=== PATIENT | female | born 1985 | race Two or more races ===

== ENCOUNTER 2018-01-31 00:13 | Inpatient (IN) | payer SELFPAY ==
[2018-01-31] VITALS (18 sets, daily range): BP systolic 87–110; BP diastolic 53–87
[~2018-01-31] VITALS: Ht 162.6 cm; Wt 53.3 kg
--- NOTE | 2018-01-31 01:01 | Emergency Room Report ---
History of Present Illness General Chief Complaint: Overdose Source: Patient Present Illness HPI Patient presents with reports of attempted overdose Patient was reported to take a handful of Motrin pills She reports that there [id number]-[id number] Patient also reportedly detected her friend regarding thoughts of killing herself Currently patient complains of mild epigastric discomfort Denies any chest pain or shortness of breath denies any back or flank pain Patient is tearful And with further questioning essentially closes her eyes and turns her head Not answering all questions Allergies: Coded Allergies: No Known Allergies (Unverified , 01/31/18) Patient History Limited by: medical condition Past Medical History: see triage record Pertinent Family History: none Last Menstrual Period: 3 weeks ago Now: No Reviewed Nursing Documentation: PMH: Agreed; PSxH: Agreed Nursing Documentation-PMH Past Medical History: No Stated History Review of Systems All Other Systems: negative except mentioned in HPI Physical Exam Vital Signs Date Time Temp Pulse Resp B/P (MAP) Pulse Ox O2 Delivery O2 Flow Rate FiO2 01/31/18 00:13 97.5 106 14 114/60 100 Room Air Sp02 EP Interpretation: reviewed, normal General Appearance: no apparent distress Head: normocephalic, atraumatic Eyes: bilateral eye PERRL, bilateral eye EOMI ENT: normal pharynx, no angioedema Neck: supple Respiratory: lungs clear, normal breath sounds Cardiovascular #1: normal peripheral pulses, regular rate, rhythm Gastrointestinal: non tender, soft Musculoskeletal: normal inspection Neurologic: alert, oriented x3, responsive, real estate office supervisor III-XII nml as tested Psychiatric: other - Tearful, reported suicidal intention Skin: normal color, no rash Lymphatic: no adenopathy Procedures Critical Care Time Critical Care Time 50 minutes for multiple re-evaluations, findings concerning for end organ injury and possible life-threatening pathology, not including any procedural time Medical Decision Making Diagnostic Impression: Primary Impression: Drug overdose Additional Impression: Tylenol poisoning ER Course Upon initial arrival patient is placed on cardiac monitoring and extensive blood work is initiated Initially the patient reported ingestion of ibuprofen However given overdose ingestion protocol all levels were checked and the patient's Tylenol level does return significantly elevated Poison control was contacted acetadote for Tylenol toxicity is recommended and initiated Patient's repeat Tylenol level is minimally lower Case was discussed with the patient's friends/family that are at bedside Given the patient's unknown number congestion, given the significantly elevated initial levels there is significant concern for liver injury and necrosis Patient is considered extremely critical Requiring ICU admission Labs Test 01/31/18 01:03 01/31/18 01:12 01/31/18 02:47 01/31/18 10:20 White Blood Count 8.7 K/UL (4.8-10.8) Red Blood Count 4.52 M/UL (4.20-5.40) Hemoglobin 11.8 G/DL (12.0-16.0) Hematocrit 35.2 % (37.0-47.0) Mean Corpuscular Volume 78 FL (80-99) Mean Corpuscular Hemoglobin 26.0 PG (27.0-31.0) Mean Corpuscular Hemoglobin Concent 33.4 G/DL (32.0-36.0) Red Cell Distribution Width 10.9 % (11.6-14.8) Platelet Count 171 K/UL (150-450) Mean Platelet Volume 8.7 FL (6.5-10.1) Neutrophils (%) (Auto) 69.8 % (45.0-75.0) Lymphocytes (%) (Auto) 23.6 % (20.0-45.0) Monocytes (%) (Auto) 5.7 % (1.0-10.0) Eosinophils (%) (Auto) 0.3 % (0.0-3.0) Basophils (%) (Auto) 0.7 % (0.0-2.0) Sodium Level 138 MMOL/L (136-145) 137 MMOL/L (136-145) Potassium Level 2.8 MMOL/L (3.5-5.1) 2.8 MMOL/L (3.5-5.1) Chloride Level 103 MMOL/L (98-107) 104 MMOL/L (98-107) Carbon Dioxide Level 17 MMOL/L (21-32) 19 MMOL/L (21-32) Anion Gap 16 mmol/L (5-15) 14 mmol/L (5-15) Blood Urea Nitrogen 12 mg/dL (7-18) 8 mg/dL (7-18) Creatinine 0.9 MG/DL (0.55-1.30) 0.6 MG/DL (0.55-1.30) Estimat Glomerular Filtration Rate > 60 mL/min (>60) > 60 mL/min (>60) Glucose Level 175 MG/DL (74-106) 145 MG/DL (74-106) Calcium Level 9.2 MG/DL (8.5-10.1) 8.7 MG/DL (8.5-10.1) Total Bilirubin 0.9 MG/DL (0.2-1.0) 0.7 MG/DL (0.2-1.0) Aspartate Amino Transf (AST/SGOT) 16 U/L (15-37) 32 U/L (15-37) Alanine Aminotransferase (ALT/SGPT) 13 U/L (12-78) 31 U/L (12-78) Alkaline Phosphatase 48 U/L (46-116) 47 U/L (46-116) Total Protein 7.8 G/DL (6.4-8.2) 7.5 G/DL (6.4-8.2) Albumin 4.0 G/DL (3.4-5.0) 4.0 G/DL (3.4-5.0) Globulin 3.8 g/dL 3.5 g/dL Albumin/Globulin Ratio 1.1 (1.0-2.7) 1.1 (1.0-2.7) Salicylates Level 2.0 ug/mL (2.8-20) Acetaminophen Level 258 MCG/ML (10-30) 235 MCG/ML (10-30) 39 MCG/ML (10-30) Serum Alcohol < 3 mg/dL Urine HCG, Qualitative Negative (NEGATIVE) Urine Opiates Screen Negative (NEGATIVE) Urine Barbiturates Screen Negative (NEGATIVE) Phencyclidine (PCP) Screen Negative (NEGATIVE) Urine Amphetamines Screen Negative (NEGATIVE) Urine Benzodiazepines Screen Negative (NEGATIVE) Urine Cocaine Screen Negative (NEGATIVE) Urine Marijuana (THC) Screen Negative (NEGATIVE) Test 01/31/18 17:00 02/01/18 06:50 Total Bilirubin 0.7 MG/DL (0.2-1.0) Direct Bilirubin 0.1 MG/DL (0.0-0.3) Aspartate Amino Transf (AST/SGOT) 28 U/L (15-37) Alanine Aminotransferase (ALT/SGPT) 29 U/L (12-78) Alkaline Phosphatase 44 U/L (46-116) Total Protein 7.1 G/DL (6.4-8.2) Albumin 3.7 G/DL (3.4-5.0) Acetaminophen Level < 2 MCG/ML (10-30) EKG Diagnostic Results Rate: normal Rhythm: NSR ST Segments: no acute changes Rhythm Strip Diag. Results EP Interpretation: yes Rate: 77 Rhythm: NSR, no PVC's, no ectopy Last Vital Signs Date Time Temp Pulse Resp B/P (MAP) Pulse Ox O2 Delivery O2 Flow Rate FiO2 01/31/18 00:28 96 19 Room Air 01/31/18 00:13 97.5 114/60 100 Status: improved Disposition: ADMITTED INPATIENT Condition: Critical Aki Ramires DO Jan 31, 2018 01:00
[2018-01-31 01:12] LABS: BASOPHILS % (AUTO) 0.7 % (0.0-2.0); EOSINOPHILS % (AUTO) 0.3 % (0.0-3.0); HEMATOCRIT 35.2 % (37.0-47.0); HEMOGLOBIN 11.8 G/DL (12.0-16.0); LYMPHOCYTES % (AUTO) 23.6 % (20.0-45.0); MEAN CORPUSCULAR VOLUME 78 FL (80-99); MONOCYTES % (AUTO) 5.7 % (1.0-10.0); NEUTROPHILS % (AUTO) 69.8 % (45.0-75.0); PLATELET COUNT 171 K/UL (150-450); RED BLOOD COUNT 4.52 M/UL (4.20-5.40); RED CELL DISTRIBUTION WIDTH 10.9 % (11.6-14.8); WHITE BLOOD COUNT 8.7 K/UL (4.8-10.8)
[2018-01-31 01:29] LABS: ALANINE AMINOTRANSFERASE 13 U/L (12-78); ALBUMIN/GLOBULIN RATIO 1.1 (1.0-2.7); ALKALINE PHOSPHATASE 48 U/L (46-116); ANION GAP 16 mmol/L (5-15); ASPARTATE AMINO TRANSFERASE 16 U/L (15-37); BILIRUBIN,TOTAL 0.9 MG/DL (0.2-1.0); BLOOD UREA NITROGEN 12 mg/dL (7-18); CALCIUM 9.2 MG/DL (8.5-10.1); CARBON DIOXIDE 17 MMOL/L (21-32); CHLORIDE 103 MMOL/L (98-107); CREATININE 0.9 MG/DL (0.55-1.30); POTASSIUM 2.8 MMOL/L (3.5-5.1); SODIUM 138 MMOL/L (136-145)
[2018-01-31] MEDS ORDERED: D5W IV ONE ×2 (01:45→20:00)
[2018-01-31] MEDS ORDERED: ACETADOTE IV ONE ×2 (01:45→20:00)
[2018-01-31] MEDS ORDERED: Miralax 17gm pkt ORAL PRN (03:30)
[2018-01-31] MEDS ORDERED: Promethazine HCl 25 MG in NS 55 ML IV PRN ×6 (03:30→21:30)
[2018-01-31] MEDS ORDERED: Mylanta II UD 30ml ORAL PRN ×2 (03:30→20:30)
[2018-01-31] MEDS ORDERED: Promethazine HCl 12.5 MG in NS 55 ML IV PRN ×2 (03:30→21:30)
[2018-01-31] MEDS ORDERED: Morphine Sulfate 2mg/ml Inj IVP PRN ×2 (03:30→21:00)
[2018-01-31] MEDS ORDERED: Metoclopramide 10mg/2ml Inj IVP PRN (03:30)
[2018-01-31] MEDS ORDERED: LORazepam Inj 2mg/ml 1ml IV PRN ×2 (03:30→21:00)
[2018-01-31] MEDS ORDERED: Nitroglycerin Subl 0.4mg tab SL PRN (03:30)
[2018-01-31] MEDS: D5 1/2NS 1,000 ML IV SCH ×4 (04:00→21:49)
[2018-01-31] MEDS ORDERED: Pantoprazole Inj IV SCH (09:00)
[2018-01-31] MEDS ORDERED: Heparin 5000 units/ml inj SUBQ SCH (09:00)
--- NOTE | 2018-01-31 10:17 | Pulmonolgy Critical Care Note ---
Critical Care - Asmt/Plan Problems: (1) Tylenol poisoning (2) Depression (3) Suicidal intent Respiratory: monitor respiratory rate, adjust FIO2, CXR Cardiac: continue to monitor HR/BP Renal: F/U I&O Infectious Disease: check cultures Gastrointestinal: continue feedings/current rate Endocrine: monitor blood sugar Hematologic: monitor H/H, transfuse if hgb<8.5 Neurologic: PRN Ativan, keep patient comfortable Affect: PRN ativan Disposition: keep in ICU Notes Reviewed: ios programmer, cardio Discussed with: nurses, case mgrhall manager - Objective Last 24 Hour Vital Signs Date Time Temp Pulse Resp B/P (MAP) Pulse Ox O2 Delivery O2 Flow Rate FiO2 01/31/18 07:00 78 22 87/53 (64) 99 01/31/18 06:00 97.8 80 22 95/57 (70) 98 01/31/18 05:00 97.8 86 22 91/68 (76) 99 01/31/18 04:00 80 22 106/87 (93) 99 01/31/18 03:47 76 01/31/18 03:40 Room Air 01/31/18 03:15 98.7 76 28 105/59 (74) 100 01/31/18 03:05 97.5 78 19 102/61 100 Room Air 01/31/18 00:28 96 19 Room Air 01/31/18 00:28 97.5 79 19 110/69 100 Room Air 01/31/18 00:13 97.5 106 14 114/60 100 Room Air Status: awake Condition: critical HEENT: atraumatic Lungs: clear Heart: HR/BP stable Abdomen: soft Extremities: no C/C/E Critical Care - Subjective ROS Limited/Unobtainable: Yes Interval Events: 32 year old female admitted through ER with dx of Tylenol overdose. She received her first dose of IV Mucomyst. Pt's stepfather is her and helping with hx. Her brother was recently diagnosed to have stage 4 lung cancer, which made her sick. Condition: critical EKG Rhythm: Sinus Rhythm I&O: Intake and Output 01/30/18 01/31/18 19:00 07:00 Intake Total 622.625 ml Output Total 620 ml Balance 2.625 ml Intake Oral 100 ml IV Total 522.625 ml Output Urine Total 620 ml # Voids 4 Labs: Laboratory Tests Test 01/31/18 01:03 01/31/18 01:12 01/31/18 02:47 White Blood Count 8.7 K/UL (4.8-10.8) Red Blood Count 4.52 M/UL (4.20-5.40) Hemoglobin 11.8 G/DL (12.0-16.0) L Hematocrit 35.2 % (37.0-47.0) L Mean Corpuscular Volume 78 FL (80-99) L Mean Corpuscular Hemoglobin 26.0 PG (27.0-31.0) L Mean Corpuscular Hemoglobin Concent 33.4 G/DL (32.0-36.0) Red Cell Distribution Width 10.9 % (11.6-14.8) L Platelet Count 171 K/UL (150-450) Mean Platelet Volume 8.7 FL (6.5-10.1) Neutrophils (%) (Auto) 69.8 % (45.0-75.0) Lymphocytes (%) (Auto) 23.6 % (20.0-45.0) Monocytes (%) (Auto) 5.7 % (1.0-10.0) Eosinophils (%) (Auto) 0.3 % (0.0-3.0) Basophils (%) (Auto) 0.7 % (0.0-2.0) Sodium Level 138 MMOL/L (136-145) Potassium Level 2.8 MMOL/L (3.5-5.1) L Chloride Level 103 MMOL/L (98-107) Carbon Dioxide Level 17 MMOL/L (21-32) L Anion Gap 16 mmol/L (5-15) H Blood Urea Nitrogen 12 mg/dL (7-18) Creatinine 0.9 MG/DL (0.55-1.30) Estimat Glomerular Filtration Rate > 60 mL/min (>60) Glucose Level 175 MG/DL (74-106) H Calcium Level 9.2 MG/DL (8.5-10.1) Total Bilirubin 0.9 MG/DL (0.2-1.0) Aspartate Amino Transf (AST/SGOT) 16 U/L (15-37) Alanine Aminotransferase (ALT/SGPT) 13 U/L (12-78) Alkaline Phosphatase 48 U/L (46-116) Total Protein 7.8 G/DL (6.4-8.2) Albumin 4.0 G/DL (3.4-5.0) Globulin 3.8 g/dL Albumin/Globulin Ratio 1.1 (1.0-2.7) Salicylates Level 2.0 ug/mL (2.8-20) L Acetaminophen Level 258 MCG/ML (10-30) *H 235 MCG/ML (10-30) *H Serum Alcohol < 3 mg/dL Urine HCG, Qualitative Negative (NEGATIVE) Urine Opiates Screen Negative (NEGATIVE) Urine Barbiturates Screen Negative (NEGATIVE) Phencyclidine (PCP) Screen Negative (NEGATIVE) Urine Amphetamines Screen Negative (NEGATIVE) Urine Benzodiazepines Screen Negative (NEGATIVE) Urine Cocaine Screen Negative (NEGATIVE) Urine Marijuana (THC) Screen Negative (NEGATIVE) Sabina Armstrong MD Jan 31, 2018 10:16
[2018-01-31 11:13] LABS: ALANINE AMINOTRANSFERASE 31 U/L (12-78); ALBUMIN/GLOBULIN RATIO 1.1 (1.0-2.7); ALKALINE PHOSPHATASE 47 U/L (46-116); ANION GAP 14 mmol/L (5-15); ASPARTATE AMINO TRANSFERASE 32 U/L (15-37); BILIRUBIN,TOTAL 0.7 MG/DL (0.2-1.0); BLOOD UREA NITROGEN 8 mg/dL (7-18); CALCIUM 8.7 MG/DL (8.5-10.1); CARBON DIOXIDE 19 MMOL/L (21-32); CHLORIDE 104 MMOL/L (98-107); CREATININE 0.6 MG/DL (0.55-1.30); POTASSIUM 2.8 MMOL/L (3.5-5.1); SODIUM 137 MMOL/L (136-145)
--- NOTE | 2018-01-31 12:35 | GI Initial Consult Note ---
History of Present Illness General Date patient seen: Jan 31, 2018 Time patient seen: 12:36 Reason for Hospitalization: Overdose Referring physician: TOR ZAFAR Reason for Consultation: TYLENOL OVERDOSE Present Illness HPI Patient presents with reports of attempted overdose Patient was reported to take a handful of Motrin pills She reports that there [id number]-mdnukxb Patient also reportedly detected her friend regarding thoughts of killing herself Currently patient complains of mild epigastric discomfort Denies any chest pain or shortness of breath denies any back or flank pain Patient is tearful And with further questioning essentially closes her eyes and turns her head Not answering all questions GI consulted for tylenol overdose. Pt seen in ICU, awake A&Ox4 NAD with no active s/sx of N/V/D. Denies any abdominal pain, states she feels better. Mother at bedside. The patient received tylenol antidote in ED, currently has 2nd bag of mucomyst running. Per RN report, patient may have history of repeated incidents of tylenol overdose. Unknown history of endoscopy / colonoscopy. Med list reviewed/reconciled: Yes Allergies: Coded Allergies: No Known Allergies (Unverified , 01/31/18) Patient History History Provided By: Patient, Medical Record PMH Narrative Limited by: medical condition Past Medical History: see triage record Pertinent Family History: none Last Menstrual Period: 3 weeks ago Now: No Reviewed Nursing Documentation: PMH: Agreed; PSxH: Agreed Nursing Documentation-PMH Past Medical History: No Stated History Review of Systems All Other Systems: negative except mentioned in HPI Physical Exam Vital Signs Date Time Temp Pulse Resp B/P (MAP) Pulse Ox O2 Delivery O2 Flow Rate FiO2 01/31/18 00:13 97.5 106 14 114/60 100 Room Air Sp02 EP Interpretation: reviewed, normal Labs Laboratory Tests Test 01/31/18 01:03 01/31/18 01:12 01/31/18 02:47 01/31/18 10:20 White Blood Count 8.7 K/UL (4.8-10.8) Red Blood Count 4.52 M/UL (4.20-5.40) Hemoglobin 11.8 G/DL (12.0-16.0) L Hematocrit 35.2 % (37.0-47.0) L Mean Corpuscular Volume 78 FL (80-99) L Mean Corpuscular Hemoglobin 26.0 PG (27.0-31.0) L Mean Corpuscular Hemoglobin Concent 33.4 G/DL (32.0-36.0) Red Cell Distribution Width 10.9 % (11.6-14.8) L Platelet Count 171 K/UL (150-450) Mean Platelet Volume 8.7 FL (6.5-10.1) Neutrophils (%) (Auto) 69.8 % (45.0-75.0) Lymphocytes (%) (Auto) 23.6 % (20.0-45.0) Monocytes (%) (Auto) 5.7 % (1.0-10.0) Eosinophils (%) (Auto) 0.3 % (0.0-3.0) Basophils (%) (Auto) 0.7 % (0.0-2.0) Sodium Level 138 MMOL/L (136-145) 137 MMOL/L (136-145) Potassium Level 2.8 MMOL/L (3.5-5.1) L 2.8 MMOL/L (3.5-5.1) L Chloride Level 103 MMOL/L (98-107) 104 MMOL/L (98-107) Carbon Dioxide Level 17 MMOL/L (21-32) L 19 MMOL/L (21-32) L Anion Gap 16 mmol/L (5-15) H 14 mmol/L (5-15) Blood Urea Nitrogen 12 mg/dL (7-18) 8 mg/dL (7-18) Creatinine 0.9 MG/DL (0.55-1.30) 0.6 MG/DL (0.55-1.30) Estimat Glomerular Filtration Rate > 60 mL/min (>60) > 60 mL/min (>60) Glucose Level 175 MG/DL (74-106) H 145 MG/DL (74-106) H Calcium Level 9.2 MG/DL (8.5-10.1) 8.7 MG/DL (8.5-10.1) Total Bilirubin 0.9 MG/DL (0.2-1.0) 0.7 MG/DL (0.2-1.0) Aspartate Amino Transf (AST/SGOT) 16 U/L (15-37) 32 U/L (15-37) Alanine Aminotransferase (ALT/SGPT) 13 U/L (12-78) 31 U/L (12-78) Alkaline Phosphatase 48 U/L (46-116) 47 U/L (46-116) Total Protein 7.8 G/DL (6.4-8.2) 7.5 G/DL (6.4-8.2) Albumin 4.0 G/DL (3.4-5.0) 4.0 G/DL (3.4-5.0) Globulin 3.8 g/dL 3.5 g/dL Albumin/Globulin Ratio 1.1 (1.0-2.7) 1.1 (1.0-2.7) Salicylates Level 2.0 ug/mL (2.8-20) L Acetaminophen Level 258 MCG/ML (10-30) *H 235 MCG/ML (10-30) *H 39 MCG/ML (10-30) H Serum Alcohol < 3 mg/dL Urine HCG, Qualitative Negative (NEGATIVE) Urine Opiates Screen Negative (NEGATIVE) Urine Barbiturates Screen Negative (NEGATIVE) Phencyclidine (PCP) Screen Negative (NEGATIVE) Urine Amphetamines Screen Negative (NEGATIVE) Urine Benzodiazepines Screen Negative (NEGATIVE) Urine Cocaine Screen Negative (NEGATIVE) Urine Marijuana (THC) Screen Negative (NEGATIVE) General Appearance: well appearing, no apparent distress, alert, thin Head: normocephalic EENT: PERRL/EOMI, normal ENT inspection Neck: supple Respiratory: normal breath sounds, no respiratory distress Cardiovascular: normal rate Gastrointestinal: normal inspection, non tender, soft, normal bowel sounds, non -distended Rectal: deferred Genitourinary: no CVA tenderness Musculoskeletal: normal inspection, back normal Neurologic: normal inspection, alert, oriented x3, responsive Psychiatric: normal inspection, judgement/insight normal, memory normal Skin: normal inspection, normal color, no rash, warm/dry, palpation normal, well hydrated Lymphatic: normal inspection, no adenopathy Current Medications Current Medications Medications (Trade) Dose Ordered Sig/Chirag Route PRN Reason Start Time Stop Time Status Last Admin Dose Admin Acetylcysteine 2600 mg/Dextrose 513 ml @ 128.25 mls/ hr ONCE IV 01/31/18 11:00 01/31/18 15:00 01/31/18 11:19 Acetylcysteine 5400 mg/Dextrose 1,027 ml @ 64.188 mls/ hr ONCE IV 01/31/18 15:00 02/01/18 14:59 Al Hydroxide/Mg Hydroxide (Mylanta II) 30 ml Q6H PRN ORAL dyspepsia 01/31/18 03:30 03/02/18 03:29 Dextrose (Dextrose 50%) 25 ml Q30M PRN IV Hypoglycemia 01/31/18 03:30 03/02/18 03:29 Dextrose (Dextrose 50%) 50 ml Q30M PRN IV Hypoglycemia 01/31/18 03:30 03/02/18 03:29 Dextrose/Sodium Chloride 1,000 ml @ 75 mls/hr [id number] IV 01/31/18 03:30 03/02/18 03:29 01/31/18 04:00 Diphenhydramine HCl (Benadryl) 25 mg Q6H PRN ORAL Itching/Pruritis 01/31/18 03:30 03/02/18 03:29 Heparin Sodium (Porcine) (Heparin 5000 units/ml) 5,000 units EVERY 12 HOURS SUBQ 01/31/18 09:00 03/02/18 08:59 01/31/18 09:11 Lorazepam (Ativan 2mg/ml 1ml) 1 mg Q4H PRN IV agitation 01/31/18 03:30 02/07/18 03:29 01/31/18 04:28 Metoclopramide HCl (Reglan) 10 mg Q6H PRN IVP servere nausea 01/31/18 03:30 03/02/18 03:29 01/31/18 03:59 Mirtazapine (Remeron) 7.5 mg BEDTIME ORAL 01/31/18 21:00 03/02/18 20:59 Morphine Sulfate (Morphine Sulfate) 2 mg Q4H PRN IVP severe Pain (Pain Scale 7-10) 01/31/18 03:30 02/07/18 03:29 Ondansetron HCl (Zofran) 4 mg Q6H PRN IVP Nausea & Vomiting 01/31/18 03:30 03/02/18 03:29 01/31/18 09:04 Pantoprazole (Protonix) 40 mg DAILY IV 01/31/18 09:00 03/02/18 08:59 01/31/18 09:10 Promethazine HCl 12.5 mg/Sodium Chloride 55.5 ml @ 110 mls/hr Q6H PRN IV Refractory N/V 01/31/18 03:30 03/02/18 03:29 Promethazine HCl 25 mg/Sodium Chloride 56 ml @ 110 mls/hr Q6H PRN IV Refractory N/V 01/31/18 03:30 03/02/18 03:29 Temazepam (Restoril) 15 mg HSPRN PRN ORAL Insomnia 01/31/18 03:30 02/07/18 03:29 GI: Plan Problems: (1) Tylenol poisoning (2) Suicidal intent (3) Depression (4) Abdominal pain (5) Drug overdose Plan acetylcysteine given in ED, patient currently on 2nd dose repeat Tylenol levels pending US, okay to advance diet after imaging study IVFs + electrolyte correction ppi zofran prn fu labs Discussed with Dr. Buck. Thank you for this patient referral, we will follow. The patient was seen and examined at bedside and all new and available data was reviewed in the patients chart. I agree with the above findings, impression and plan. (Patient seen earlier today. Signature stamp does not reflect patient encounter time.). - MD Chana Joy,[facility] [employer] SUPERVISOR Jan 31, 2018 12:35
--- NOTE | 2018-01-31 13:59 | Diagnostic Imaging Report ---
Indication:Abdominal pain Technique: Grayscale and duplex Doppler imaging of the abdomen performed. Comparison: None Findings: The liver is unremarkable. The gallbladder is noted. The demonstrated part of the pancreas, aorta and IVC show no abnormalities. Both kidneys appear unremarkable. The spleen is normal in size. Accessory spleen noted. CBD is 3.3 mm. There is no biliary ductal dilatation identified. Doppler evaluation of the main portal vein shows patency. There is no ascites. No hydronephrosis seen. Impression: No acute findings.
[2018-01-31] MEDS ORDERED: D5W IV SCH (15:00)
[2018-01-31] MEDS ORDERED: ACETADOTE IV SCH (15:00)
--- NOTE | 2018-01-31 16:00 | History & Physical ---
History and Physical History & Physicial Eyad Carmona MD Jan 31, 2018 16:00
[2018-01-31 17:44] LABS: ALANINE AMINOTRANSFERASE 29 U/L (12-78); ALBUMIN 3.7 G/DL (3.4-5.0); ALKALINE PHOSPHATASE 44 U/L (46-116); ASPARTATE AMINO TRANSFERASE 28 U/L (15-37); BILIRUBIN,DIRECT 0.1 MG/DL (0.0-0.3); BILIRUBIN,TOTAL 0.7 MG/DL (0.2-1.0)
--- NOTE | 2018-01-31 19:02 | Consultation ---
DATE OF CONSULTATION: 01/31/2018 HISTORY OF PRESENT ILLNESS: This is a 32-year-old female with no known past psychiatric history, who has been admitted to the hospital status post suicide attempt on Tylenol. The patient has multiple psychosocial stressors including her brother dying from stage IV cancer as well as boyfriend and the patient relationship issues. The patient's family is out of state, however, she has relationship issues with her boyfriend and boyfriend's family. The patient stated "there is so much going on, that is why, I decided to end my life." The patient denies any current suicidal ideation. The patient stated that she has been dealing with anxiety for the past several months. She is reluctant to get any psychiatric help. The patient stated that she is going to be "fine." The patient stated last night around 10:30, she decided to end her life. She took about a quarter of a bottle of Tylenol and thereafter, she called her brother and reported that she is ending her life and wants the brother to take care of her dog and he could have all her belongings. PAST PSYCHIATRIC HISTORY: She denies any suicide attempt in the past. She denies any psychiatric hospitalization in the past. PAST MEDICAL HISTORY: None significant. ALLERGIES: No known drug allergies. SUBSTANCE ABUSE HISTORY: She denies any illicit drug use or alcohol. System is negative for any drugs. The acetaminophen is significantly elevated. MENTAL STATUS EXAMINATION: The patient is alert and oriented times self, place, and situation. Mood is depressed. Affect is constricted. Congruent with mood. Thought process is concrete. Thought content, no suicidal or homicidal ideations. ASSESSMENT: [place] I Major depressive disorder, recurrent versus adjustment disorder. [place] II Deferred. [place] III As above. [place] IV Low. [place] V Global assessment of functioning is 20. PLAN: 1. The patient will be started on Remeron 7.5 mg at bedtime. 2. She is on Ativan p.r.n. 3. She does not meet the criteria for hold nor inpatient level of care. The patient may be discharged after medical stabilization. Radha Willett M.D. DR: GLEN JOB#: [id number] CC:
[2018-01-31] MEDS: Heparin 5000 units/ml inj SUBQ SCH (21:00)
--- NOTE | 2018-01-31 22:17 | History and Physical Report ---
DATE OF ADMISSION: 01/31/2018 CHIEF COMPLAINT: Overdose on Tylenol and ibuprofen. HISTORY OF PRESENT ILLNESS: This is a 32 years old female with a past medical history significant for asthma, who presented to the hospital complaining about attempt to have overdose on medication. She took handful of Motrin as well as Tylenol, reported that over the counter. The patient detected by her friend regarding thoughts of killing herself, and she denies any chest pain or shortness of breath. Complains about gastric pain. The patient subsequently was transferred to the hospital. Shortly after initial evaluation in the emergency department, the patient was admitted to the hospital with Tylenol overdose and suicide attempt and depression. PAST MEDICAL HISTORY AND PAST SURGICAL HISTORY: As above. History of asthma. MEDICATIONS: At home, none. She used to take inhaler. FAMILY HISTORY: Noncontributory. ALLERGIES: No known drug allergies. REVIEW OF SYSTEMS: Mostly as above. Denies any dysuria, frequency, or hematuria. She has complained about depression. Denies any hemoptysis or hematochezia. Denies any bright red blood per rectum. PHYSICAL EXAMINATION: VITAL SIGNS: On admission, temperature 97.5, pulse of 106, respirations 14, and blood pressure 114/60. GENERAL: The patient is awake, responsive, very blunt appearance and poor eye contact. HEAD AND NECK: Pupils are reactive to light. Extraocular movements are intact. Neck was supple. No JVD. LUNGS: Good air entry. No wheezing or rales. HEART: S1 and S2. Regular rhythm. No murmur or gallop. ABDOMEN: Soft, nondistended, and nontender. Positive bowel sounds. EXTREMITIES: No cyanosis, clubbing, or edema. NEUROLOGIC: Cranial nerves II through XII are grossly intact. Motor is 5/5 in all extremities. Gait is not assessed due to the patient's status. RECTAL: Refused and deferred. GENITOURINARY: Refused and deferred. LABORATORY AND DIAGNOSTIC DATA: Laboratory on admission, sodium 138, potassium 2.8, chloride 103, bicarbonate 17, BUN 12, creatinine 0.9, and glucose is 175. AST of 16, ALT of 13, total bilirubin of 0.9, and alkaline phosphatase was 48. Tylenol level is 258, salicylate level is 2.0, and alcohol level is less than 3. Urine drug screen is negative. Abdominal ultrasound unremarkable. ASSESSMENT: 1. Severe depression, status post overdose on Tylenol . 2. Tylenol overdose. 3. History of asthma. 4. Hypokalemia. PLAN: Admit the patient to intensive care unit. We will follow up with the , follow up with the Mucomyst dosage. Follow up with Dr. Armstrong, Pulmonary, Critical Care and Psychiatry, Dr. Willett. Code status, Full Code. DVT prophylaxis. Heparin subcutaneously. IV hydration. Code status, Full Code at this time. Eyad Carmona M.D. DR: ROSSI JOB#: [id number] CC:
[2018-02-01] VITALS: BP 104/75
[2018-02-01 04:00] VITALS: BP 99/60
[2018-02-01] MEDS: D5 1/2NS 1,000 ML IV SCH ×2 (06:00→21:51)
[2018-02-01 07:25] LABS: BASOPHILS % (AUTO) 1.6 % (0.0-2.0); EOSINOPHILS % (AUTO) 1.4 % (0.0-3.0); HEMOGLOBIN 11.3 G/DL (12.0-16.0); LYMPHOCYTES % (AUTO) 41.8 % (20.0-45.0); MEAN CORPUSCULAR VOLUME 79 FL (80-99); MONOCYTES % (AUTO) 6.2 % (1.0-10.0); PLATELET COUNT 139 K/UL (150-450); RED BLOOD COUNT 4.16 M/UL (4.20-5.40); RED CELL DISTRIBUTION WIDTH 11.6 % (11.6-14.8); WHITE BLOOD COUNT 4.2 K/UL (4.8-10.8)
[2018-02-01 07:37] LABS: ALANINE AMINOTRANSFERASE 28 U/L (12-78); ALBUMIN 3.1 G/DL (3.4-5.0); ALBUMIN/GLOBULIN RATIO 0.9 (1.0-2.7); ALKALINE PHOSPHATASE 36 U/L (46-116); AMYLASE 48 U/L (25-115); ANION GAP 9 mmol/L (5-15); ASPARTATE AMINO TRANSFERASE 19 U/L (15-37); BILIRUBIN,TOTAL 0.4 MG/DL (0.2-1.0); BLOOD UREA NITROGEN 2 mg/dL (7-18); CALCIUM 8.6 MG/DL (8.5-10.1); CARBON DIOXIDE 24 MMOL/L (21-32); CHLORIDE 109 MMOL/L (98-107); CREATININE 0.7 MG/DL (0.55-1.30); POTASSIUM 3.3 MMOL/L (3.5-5.1); SODIUM 142 MMOL/L (136-145)
[2018-02-01 08:12] VITALS: BP 100/60
[2018-02-01 08:14] LABS: PHOSPHORUS 3.6 MG/DL (2.5-4.9)
[2018-02-01] MEDS: Pantoprazole Inj IV SCH (08:37)
[2018-02-01] MEDS: Heparin 5000 units/ml inj SUBQ SCH ×2 (09:00→20:53)
[2018-02-01 12:00] VITALS: BP 134/62
[2018-02-01] MEDS ORDERED: Tubing IV Secondary IV ONE ×2 (13:30→17:37)
[2018-02-01] MEDS ORDERED: D5 1/2NS 1000ml IV ONE (13:30)
[2018-02-01] MEDS ORDERED: NS 275ml ONE (13:30)
[2018-02-01 16:12] VITALS: BP 105/64
--- NOTE | 2018-02-01 18:57 | Internal Med Progress Note ---
Subjective Date of Service: Feb 01, 2018 Physician Name Mekhi Magaña Attending Physician Eyad Carmona MD Current Medications Medications (Trade) Dose Ordered Sig/Chirag Route PRN Reason Start Time Stop Time Status Last Admin Dose Admin Al Hydroxide/Mg Hydroxide (Mylanta II) 30 ml Q6H PRN ORAL dyspepsia 01/31/18 20:30 03/02/18 20:29 Dextrose (Dextrose 50%) 25 ml Q30M PRN IV Hypoglycemia 01/31/18 20:30 03/02/18 03:29 Dextrose (Dextrose 50%) 50 ml Q30M PRN IV Hypoglycemia 01/31/18 20:30 03/02/18 03:29 Dextrose/Sodium Chloride 1,000 ml @ 75 mls/hr [id number] IV 01/31/18 20:00 03/02/18 03:29 02/01/18 06:00 Diphenhydramine HCl (Benadryl) 25 mg Q6H PRN ORAL Itching/Pruritis 01/31/18 21:00 03/02/18 20:59 Heparin Sodium (Porcine) (Heparin 5000 units/ml) 5,000 units EVERY 12 HOURS SUBQ 01/31/18 21:00 03/02/18 08:59 Lorazepam (Ativan 2mg/ml 1ml) 1 mg Q4H PRN IV agitation 01/31/18 21:00 02/07/18 20:59 Mirtazapine (Remeron) 7.5 mg BEDTIME ORAL 01/31/18 21:00 03/02/18 20:59 01/31/18 20:57 Morphine Sulfate (Morphine Sulfate) 2 mg Q4H PRN IVP severe Pain (Pain Scale 7-10) 01/31/18 21:00 02/07/18 20:59 Ondansetron HCl (Zofran) 4 mg Q6H PRN IVP Nausea & Vomiting 01/31/18 21:00 03/02/18 20:59 Pantoprazole (Protonix) 40 mg DAILY IV 02/01/18 09:00 03/02/18 08:59 02/01/18 08:37 Promethazine HCl 25 mg/Sodium Chloride 56 ml @ 110 mls/hr Q6H PRN IV Refractory N/V 01/31/18 20:15 03/02/18 20:14 Temazepam (Restoril) 15 mg HSPRN PRN ORAL Insomnia 01/31/18 21:00 02/07/18 20:59 Allergies: Coded Allergies: No Known Allergies (Unverified , 01/31/18) ROS Limited/Unobtainable: No Constitutional: Reports: no symptoms HEENT: Reports: no symptoms Cardiovascular: Reports: no symptoms Respiratory: Reports: no symptoms Gastrointestinal/Abdominal: Reports: no symptoms Genitourinary: Reports: no symptoms Neurologic/Psychiatric: Reports: no symptoms Subjective 32 YO F admitted with intentional overdose as suicide gesture. Cover for Int Jairon-Dr Carmona Objective Last Vital Signs Date Time Temp Pulse Resp B/P (MAP) Pulse Ox O2 Delivery O2 Flow Rate FiO2 02/01/18 16:12 97.5 74 18 105/64 (78) 98 02/01/18 09:00 Room Air Laboratory Tests Test 02/01/18 06:50 White Blood Count 4.2 K/UL (4.8-10.8) #L Red Blood Count 4.16 M/UL (4.20-5.40) L Hemoglobin 11.3 G/DL (12.0-16.0) L Hematocrit 33.0 % (37.0-47.0) L Mean Corpuscular Volume 79 FL (80-99) L Mean Corpuscular Hemoglobin 27.1 PG (27.0-31.0) Mean Corpuscular Hemoglobin Concent 34.1 G/DL (32.0-36.0) Red Cell Distribution Width 11.6 % (11.6-14.8) Platelet Count 139 K/UL (150-450) L Mean Platelet Volume 8.9 FL (6.5-10.1) Neutrophils (%) (Auto) 49.0 % (45.0-75.0) Lymphocytes (%) (Auto) 41.8 % (20.0-45.0) Monocytes (%) (Auto) 6.2 % (1.0-10.0) Eosinophils (%) (Auto) 1.4 % (0.0-3.0) Basophils (%) (Auto) 1.6 % (0.0-2.0) Erythrocyte Sedimentation Rate 2 MM/HR (0-20) Activated Partial Thromboplast Time 26 SEC (23-33) Sodium Level 142 MMOL/L (136-145) Potassium Level 3.3 MMOL/L (3.5-5.1) L Chloride Level 109 MMOL/L (98-107) H Carbon Dioxide Level 24 MMOL/L (21-32) Anion Gap 9 mmol/L (5-15) Blood Urea Nitrogen 2 mg/dL (7-18) L Creatinine 0.7 MG/DL (0.55-1.30) Estimat Glomerular Filtration Rate > 60 mL/min (>60) Glucose Level 107 MG/DL (74-106) H Calcium Level 8.6 MG/DL (8.5-10.1) Phosphorus Level 3.6 MG/DL (2.5-4.9) Magnesium Level 1.6 MG/DL (1.8-2.4) L Total Bilirubin 0.4 MG/DL (0.2-1.0) Aspartate Amino Transf (AST/SGOT) 19 U/L (15-37) Alanine Aminotransferase (ALT/SGPT) 28 U/L (12-78) Alkaline Phosphatase 36 U/L (46-116) L C-Reactive Protein, Quantitative < 0.4 mg/dL (0.00-0.90) Total Protein 6.5 G/DL (6.4-8.2) Albumin 3.1 G/DL (3.4-5.0) L Globulin 3.4 g/dL Albumin/Globulin Ratio 0.9 (1.0-2.7) L Amylase Level 48 U/L (25-115) Lipase 123 U/L (73-393) Microbiology Date/Time Source Procedure Growth Status 01/31/18 03:32 Nasal Nares MRSA Culture - Final NO METHICILLIN RESISTANT STAPH AUREUS... Complete 01/31/18 03:32 Rectum VRE Culture - Final NO VANCOMYCIN RESISTANT ENTEROCOCCUS ... Complete Intake and Output 01/31/18 02/01/18 19:00 07:00 Intake Total 1278.00 ml 1674.436 ml Balance 1278.00 ml 1674.436 ml Intake Oral 390 ml 240 ml IV Total 888.00 ml 1434.436 ml # Voids 5 1 # Bowel Movements 3 Objective PHYSICAL EXAMINATION: GENERAL: The patient is awake, responsive, very blunt appearance and poor eye contact. HEAD AND NECK: Pupils are reactive to light. Extraocular movements are intact. Neck was supple. No JVD. LUNGS: Good air entry. No wheezing or rales. HEART: S1 and S2. Regular rhythm. No murmur or gallop. ABDOMEN: Soft, nondistended, and nontender. Positive bowel sounds. EXTREMITIES: No cyanosis, clubbing, or edema. NEUROLOGIC: Cranial nerves II through XII are grossly intact. Motor is 5/5 in all extremities. Gait is not assessed due to the patient's status. RECTAL: Refused and deferred. GENITOURINARY: Refused and deferred. Assessment/Plan Problem List: (1) Major depression Assessment & Plan: See psychiatry note-does not meet 5150 criteria. Continue remeron (2) Suicide attempt (3) Drug overdose (4) Tylenol poisoning Assessment & Plan: Continue acetylcysteine per GI (5) Elevated liver enzymes Status: not improved Mekhi Magaña MD Feb 01, 2018 18:57
[2018-02-01 20:00] VITALS: BP 95/60
[2018-02-02] VITALS (7 sets, daily range): BP systolic 98–108; BP diastolic 56–69
[2018-02-02] MEDS: Heparin 5000 units/ml inj SUBQ SCH ×2 (09:00→20:04)
[2018-02-02] MEDS: Pantoprazole Inj IV SCH (09:47)
[2018-02-02] MEDS: D5 1/2NS 1,000 ML IV SCH (12:17)
--- NOTE | 2018-02-02 16:23 | Internal Med Progress Note ---
Subjective Date of Service: Feb 02, 2018 Physician Name Mekhi Magaña Attending Physician Eyad Carmona MD Current Medications Medications (Trade) Dose Ordered Sig/Chirag Route PRN Reason Start Time Stop Time Status Last Admin Dose Admin Al Hydroxide/Mg Hydroxide (Mylanta II) 30 ml Q6H PRN ORAL dyspepsia 01/31/18 20:30 03/02/18 20:29 Dextrose (Dextrose 50%) 25 ml Q30M PRN IV Hypoglycemia 01/31/18 20:30 03/02/18 03:29 Dextrose (Dextrose 50%) 50 ml Q30M PRN IV Hypoglycemia 01/31/18 20:30 03/02/18 03:29 Dextrose/Sodium Chloride 1,000 ml @ 75 mls/hr [id number] IV 01/31/18 20:00 03/02/18 03:29 02/02/18 12:17 Diphenhydramine HCl (Benadryl) 25 mg Q6H PRN ORAL Itching/Pruritis 01/31/18 21:00 03/02/18 20:59 Heparin Sodium (Porcine) (Heparin 5000 units/ml) 5,000 units EVERY 12 HOURS SUBQ 01/31/18 21:00 03/02/18 08:59 Lorazepam (Ativan 2mg/ml 1ml) 1 mg Q4H PRN IV agitation 01/31/18 21:00 02/07/18 20:59 Mirtazapine (Remeron) 7.5 mg BEDTIME ORAL 01/31/18 21:00 03/02/18 20:59 02/01/18 20:53 Morphine Sulfate (Morphine Sulfate) 2 mg Q4H PRN IVP severe Pain (Pain Scale 7-10) 01/31/18 21:00 02/07/18 20:59 Ondansetron HCl (Zofran) 4 mg Q6H PRN IVP Nausea & Vomiting 01/31/18 21:00 03/02/18 20:59 Pantoprazole (Protonix) 40 mg DAILY IV 02/01/18 09:00 03/02/18 08:59 02/02/18 09:47 Promethazine HCl 25 mg/Sodium Chloride 56 ml @ 110 mls/hr Q6H PRN IV Refractory N/V 01/31/18 20:15 03/02/18 20:14 Temazepam (Restoril) 15 mg HSPRN PRN ORAL Insomnia 01/31/18 21:00 02/07/18 20:59 Allergies: Coded Allergies: No Known Allergies (Unverified , 01/31/18) ROS Limited/Unobtainable: No Constitutional: Reports: no symptoms HEENT: Reports: no symptoms Cardiovascular: Reports: no symptoms Respiratory: Reports: no symptoms Gastrointestinal/Abdominal: Reports: no symptoms Genitourinary: Reports: no symptoms Neurologic/Psychiatric: Reports: no symptoms Subjective 32 YO F admitted with intentional overdose as suicide gesture. Cover for Int Med-Dr Carmona Objective Last Vital Signs Date Time Temp Pulse Resp B/P (MAP) Pulse Ox O2 Delivery O2 Flow Rate FiO2 02/02/18 15:52 98.8 69 18 100/56 (71) 98 02/02/18 09:00 Room Air Microbiology Date/Time Source Procedure Growth Status 01/31/18 03:32 Nasal Nares MRSA Culture - Final NO METHICILLIN RESISTANT STAPH AUREUS... Complete 01/31/18 03:32 Rectum - Final NO CARBAPENEM-RESISTANT ENTEROBACTERI... Complete 01/31/18 03:32 Rectum VRE Culture - Final NO VANCOMYCIN RESISTANT ENTEROCOCCUS ... Complete Intake and Output 02/01/18 02/02/18 19:00 07:00 Intake Total 1308.376 ml 1185 ml Balance 1308.376 ml 1185 ml Intake Oral 480 ml 360 ml IV Total 828.376 ml 825 ml # Voids 8 3 Objective PHYSICAL EXAMINATION: GENERAL: The patient is awake, responsive, very blunt appearance and poor eye contact. HEAD AND NECK: Pupils are reactive to light. Extraocular movements are intact. Neck was supple. No JVD. LUNGS: Good air entry. No wheezing or rales. HEART: S1 and S2. Regular rhythm. No murmur or gallop. ABDOMEN: Soft, nondistended, and nontender. Positive bowel sounds. EXTREMITIES: No cyanosis, clubbing, or edema. NEUROLOGIC: Cranial nerves II through XII are grossly intact. Motor is 5/5 in all extremities. Gait is not assessed due to the patient's status. RECTAL: Refused and deferred. GENITOURINARY: Refused and deferred. Assessment/Plan Problem List: (1) Major depression Assessment & Plan: See psychiatry note-does not meet 5150 criteria. Continue remeron (2) Suicide attempt (3) Drug overdose (4) Tylenol poisoning Assessment & Plan: Continue acetylcysteine per GI (5) Elevated liver enzymes Mekhi Magaña MD Feb 02, 2018 16:23
[2018-02-03 04:00] VITALS: BP 100/59
[2018-02-03 07:59] LABS: BASOPHILS % (AUTO) 0.8 % (0.0-2.0); HEMATOCRIT 36.3 % (37.0-47.0); LYMPHOCYTES % (AUTO) 40.3 % (20.0-45.0); MEAN CORPUSCULAR VOLUME 80 FL (80-99); MONOCYTES % (AUTO) 6.3 % (1.0-10.0); NEUTROPHILS % (AUTO) 49.6 % (45.0-75.0); PLATELET COUNT 167 K/UL (150-450); RED BLOOD COUNT 4.51 M/UL (4.20-5.40); RED CELL DISTRIBUTION WIDTH 11.2 % (11.6-14.8); WHITE BLOOD COUNT 4.7 K/UL (4.8-10.8)
[2018-02-03 08:00] VITALS: BP 110/65
[2018-02-03 08:02] LABS: ANION GAP 6 mmol/L (5-15); BLOOD UREA NITROGEN 6 mg/dL (7-18); CALCIUM 9.4 MG/DL (8.5-10.1); CARBON DIOXIDE 29 MMOL/L (21-32); CHLORIDE 107 MMOL/L (98-107); CREATININE 0.7 MG/DL (0.55-1.30); SODIUM 142 MMOL/L (136-145)
[2018-02-03] MEDS: Heparin 5000 units/ml inj SUBQ SCH (08:02)
[2018-02-03] MEDS: Pantoprazole Inj IV SCH (08:16)
[2018-02-03] MEDS ORDERED: D5 1/2NS 1000ml IV ONE (09:59)
--- NOTE | 2018-02-03 10:54 | GI Progress Note ---
Assessment/Plan Problems: (1) Elevated liver enzymes ICD Codes: R74.8 - Abnormal levels of other serum enzymes SNOMED: 142173224 (2) Tylenol poisoning ICD Codes: T39.1X1A - Poisoning by 4-Aminophenol derivatives, accidental ( unintentional), initial encounter SNOMED: 17189683 (3) Drug overdose ICD Codes: T50.901A - Poisoning by unspecified drugs, medicaments and biological substances, accidental (unintentional), initial encounter SNOMED: 59488941 (4) Abdominal pain ICD Codes: R10.9 - Unspecified abdominal pain SNOMED: 84314112 (5) Suicidal intent ICD Codes: R45.851 - Suicidal ideations SNOMED: 842864756, 033181803 (6) Depression ICD Codes: F32.9 - Major depressive disorder, single episode, unspecified SNOMED: 03834769 Status: stable Status Narrative Discussed with Dr. Buck. Assessment/Plan okay for DC per GI standpoint regular diet, tolerating mucomyst tx given fu labs The patient was seen and examined at bedside and all new and available data was reviewed in the patients chart. I agree with the above findings, impression and plan. (Patient seen earlier today. Signature stamp does not reflect patient encounter time.). - Davin Buck MD Subjective Gastrointestinal/Abdominal: Reports: no symptoms Objective Last 24 Hour Vital Signs Date Time Temp Pulse Resp B/P (MAP) Pulse Ox O2 Delivery O2 Flow Rate FiO2 02/03/18 09:00 Room Air 02/03/18 08:00 98.1 69 20 110/65 (80) 97 02/03/18 04:00 97.9 68 18 100/59 (73) 02/02/18 23:58 97.9 64 18 100/56 (71) 02/02/18 20:48 Room Air 02/02/18 19:50 98.0 69 18 99/58 (72) 97 02/02/18 15:52 98.8 69 18 100/56 (71) 98 02/02/18 11:54 98.3 67 20 102/59 (73) 99 Intake and Output 02/02/18 02/03/18 18:59 06:59 Intake Total 1350 ml Balance 1350 ml Intake Oral 900 ml IV Total 450 ml # Voids 6 2 # Bowel Movements 1 Laboratory Tests Test 02/03/18 06:20 White Blood Count 4.7 K/UL (4.8-10.8) L Red Blood Count 4.51 M/UL (4.20-5.40) Hemoglobin 12.0 G/DL (12.0-16.0) Hematocrit 36.3 % (37.0-47.0) L Mean Corpuscular Volume 80 FL (80-99) Mean Corpuscular Hemoglobin 26.5 PG (27.0-31.0) L Mean Corpuscular Hemoglobin Concent 33.0 G/DL (32.0-36.0) Red Cell Distribution Width 11.2 % (11.6-14.8) L Platelet Count 167 K/UL (150-450) Mean Platelet Volume 8.4 FL (6.5-10.1) Neutrophils (%) (Auto) 49.6 % (45.0-75.0) Lymphocytes (%) (Auto) 40.3 % (20.0-45.0) Monocytes (%) (Auto) 6.3 % (1.0-10.0) Eosinophils (%) (Auto) 3.0 % (0.0-3.0) Basophils (%) (Auto) 0.8 % (0.0-2.0) Sodium Level 142 MMOL/L (136-145) Potassium Level 4.0 MMOL/L (3.5-5.1) Chloride Level 107 MMOL/L (98-107) Carbon Dioxide Level 29 MMOL/L (21-32) Anion Gap 6 mmol/L (5-15) Blood Urea Nitrogen 6 mg/dL (7-18) L Creatinine 0.7 MG/DL (0.55-1.30) Estimat Glomerular Filtration Rate > 60 mL/min (>60) Glucose Level 89 MG/DL (74-106) Calcium Level 9.4 MG/DL (8.5-10.1) Height (Feet): 5 Height (Inches): 4.00 Weight (Pounds): 117 General Appearance: WD/WN, no apparent distress, alert Cardiovascular: normal rate Respiratory/Chest: normal breath sounds, no respiratory distress Abdominal Exam: normal bowel sounds, non tender, soft Extremities: normal range of motion, non-tender Enzo Zayas [employer] OPERATOR Feb 03, 2018 10:54
--- NOTE | 2018-02-04 11:54 | Discharge Summary ---
Discharge Summary Discharge Summary _ DATE OF ADMISSION: 01/31/2018 DATE OF DISCHARGE: 02/03/2018 REASON FOR ADMISSION: 32 years old female with history of asthma, presented to emergency department due to overdose on Tylenol. Patient took handful of Motrin and Tylenol. Patient denied chest pain or shortness of breath, but complained of epigastric pain. Vital signs revealed mild tachycardia 106 , otherwise stable. Laboratory workup revealed no leukocytosis ,mild anemia hemoglobin 11.8, hematocrit 35.2. Stable LFT and bilirubin. Potassium 2.8. Anion gap 16 . Tylenol level 258. Serum alcohol and salicylates levels negative . Urine toxicology screen was negative. Poison control contacted. Recommended to start Acetadote for Tylenol toxicity . Patient initially admitted to ICU with diagnoses of Tylenol overdose, history of asthma, hypokalemia, severe depression , status post overdose, suicidal attempt. CONSULTANTS: pulmonary/landscape and yardwork laborer Dr. Armstrong GI specialist Dr. Buck psychiatrist [facility]: Patient initially admitted to ICU. Patient started on the IV fluids and Acetadote /Mucomyst as per poison control recommendations. Patient was followed up with Tylenol level. GI and Psychiatry consult were requested. DVT prophylaxis provided. Potassium was replaced. Liver enzymes were closely monitored and remained stable. Potassium and magnesium were replaced. Tylenol level was monitored on a daily basis. On 02/03 Tylenol level less than 2. Pain management provided as needed. GI prophylaxis provided. LFT remained stable. Potassium 4.0 prior to discharge. Psychiatrist seen and evaluated the patient and diagnosed patient with suicidal attempt and major depression. Patient started on Remeron at nighttime. Anxiolytics provided as needed. Patient denied any suicidal attempt and psychiatric hospitalizations in the past . Per psychiatrist , patient did not meet criteria for inpatient psychiatric treatment. Psychiatrist cleared patient for discharge after medical stabilization. Pulmonary status remained stable. Pulse oximetry was stable on room air. No signs of respiratory distress. Patient was stable for discharge . Recommended outpatient follow-up with psychiatrist . FINAL DIAGNOSES: Suicidal attempt Tylenol overdose Major depression Abdominal pain-resolved History of asthma DISCHARGE MEDICATIONS: See Medication Reconciliation list. DISCHARGE INSTRUCTIONS: Patient was discharged home . Follow up with primary care provider in one week. I have been assigned to dictate discharge summary for this account. I was not involved in the patient's management. Jayne Simmons NP Feb 04, 2018 11:54
== END 2018-02-03 10:00 | disposition home or self-care (01) | DRG 918 ==
LOC: EDBD 00:13 → EMR 01:02 → ICU 02:16 → EDBEDREQ 02:23 → 4E 20:47
DX: T39.1X2A Poisoning by 4-Aminophenol derivatives, intentional self-harm, initial encounter (principal); R10.13 Epigastric pain; J45.909 Unspecified asthma, uncomplicated; F32.9 Major depressive disorder, single episode, unspecified; R74.8 Abnormal levels of other serum enzymes
CPT/HCPCS: 36415; 76700; 80048; 80053; 80076; 80307; 80329; 81025; 82150; 83690; 83735; 84100; 84260; 85025; 85651; 85730; 86140; 87081; 96365; 99291; J2405; J2765; J8499